=== PATIENT | female | born 1970 | race African-American/Black ===

== ENCOUNTER 2019-05-12 16:27 | Emergency (ER) | payer OTHER ==
[~2019-05-12] VITALS: Ht 170.2 cm; Wt 74.8 kg
[2019-05-12 16:35] VITALS: BP 129/86
--- NOTE | 2019-05-12 16:35 | NUR ---
ED Nurse Note: pt walked in to ED due to swelling on multiple area on both arms for 1 day. per pt, bite by insect at work over month, but this time, she noticed swelling. c/o itchness, no pain. AAO x4. respirations even and non-labored noted. will wait for the further order.
--- NOTE | 2019-05-12 17:19 | Emergency Room Report ---
History of Present Illness General Chief Complaint: Skin Rash/Abscess Source: Patient Present Illness HPI 49 year old female presents to the ED c/o multiple swollen, red areas on the bilateral UE's that are itchy. Pt. reports acute onset yesterday while at work. Pt. denies pain at rest, she reports some mild sensitivity with direct palpation. Pt. denies fevers, chills or swollen tender lymph nodes. Denies lesions/rashes elsewhere on the body. Denies new medications or body washes or creams. Denies swelling of the lips, tongue , throat or airway. Denies wheezing , or shortness of breath. Denies recent travel, or recent illness. She denies blisters, oral lesions, or sloughing of the skin. Pt. reports another coworker has similar symptoms. No other aggravating or relieving factors at this time. She has not taken or applied any medications for her symptoms. Allergies: Coded Allergies: No Known Allergies (Unverified , 05/12/19) Patient History Past Medical History: see triage record Past Surgical History: none Pertinent Family History: none Now: No Reviewed Nursing Documentation: PMH: Agreed; PSxH: Agreed Nursing Documentation-PMH Past Medical History: No Stated History Review of Systems All Other Systems: negative except mentioned in HPI Physical Exam Vital Signs Date Time Temp Pulse Resp B/P (MAP) Pulse Ox O2 Delivery O2 Flow Rate FiO2 05/12/19 16:31 98.1 75 17 129/86 (100) 99 Room Air Medical Decision Making PA Attestation Dr. Ravi is my supervising Physician whom patient management has been discussed with. Diagnostic Impression: Primary Impression: Insect bites Qualified Codes: S40.869A - Insect bite (nonvenomous) of unspecified upper arm , initial encounter; W57.XXXA - Bitten or stung by nonvenomous insect and other nonvenomous arthropods, initial encounter Additional Impression: Allergic reaction to insect bite ER Course 49 year old female presents to the ED c/o multiple swollen, red areas on the bilateral UE's that are itchy. Pt. reports acute onset yesterday while at work. Pt. denies pain at rest, she reports some mild sensitivity with direct palpation. Pt. denies fevers, chills or swollen tender lymph nodes. Denies lesions/rashes elsewhere on the body. Denies new medications or body washes or creams. Denies swelling of the lips, tongue , throat or airway. Denies wheezing , or shortness of breath. Denies recent travel, or recent illness. She denies blisters, oral lesions, or sloughing of the skin. Pt. reports another coworker has similar symptoms. No other aggravating or relieving factors at this time. She has not taken or applied any medications for her symptoms. Ddx considered but are not limited to cellulitis, scabies, insect bites, tic bites, spider bites, contact dermatitis, Drug reaction, allergic reaction, fungal infection, lice. Vital signs: are WNL, pt. is afebrile H&PE are most consistent with insect bites of multiple sites on the bilateral UE 's with localized allergic reaction no evidence of acute or impending airway compromise or anaphylaxis. No evidence of secondary infection at this time. ORDERS: none required at this time, the diagnosis is clinical ED INTERVENTIONS: None required at this time. Patient was offered prescription for Benadryl tablets and hydrocortisone cream. This patient declined and states that she will purchase OTC. DISCHARGE: At this time pt. is stable for d/c to home. Will provide printed patient care instructions, and any necessary prescriptions. Care plan and follow up instructions have been discussed with the patient prior to discharge. Last Vital Signs Date Time Temp Pulse Resp B/P (MAP) Pulse Ox O2 Delivery O2 Flow Rate FiO2 05/12/19 16:35 98.1 75 17 129/86 99 Room Air Disposition: HOME, SELF-CARE Condition: Stable Scripts No Active Prescriptions or Reported Meds Referrals: [facility] (PCP) Patient Instructions: Insect Bite, [id number], Medical Screening Exam Additional Instructions: Take recommended OTC medications as directed. Do not drink alcohol, drive, or operate heavy machinery while taking Benadryl as this may cause drowsiness. Follow up with a Primary Care Provider in 3-5 days, even if your symptoms have resolved. To reduce risk of re-occurrence of your symptoms: Avoid additional contact with initial exposure Return sooner to ED if new symptoms occur, or current symptoms become worse. - Please note that this Emergency Department Report was dictated using [employer] address systems mechanic technology software, occasionally this can lead to erroneous entry secondary to interpretation by the dictation equipment. Bettye Aguilar May 12, 2019 17:19
[2019-05-12 17:31] VITALS: BP 131/78
--- NOTE | 2019-05-12 17:31 | NUR ---
ER DISCHARGE NOTE: Patient is cleared to be discharged per ERMD, pt is aox4, on room air, with stable vital signs. pt was given dc instructions, pt was able to verbalize understanding, pt id band removed without complications. pt is able to ambulate with steady gait. pt took all belongings.
== END 2019-05-12 17:32 | disposition home or self-care (01) ==
LOC: EMR 16:56
DX: T63.481A Toxic effect of venom of other arthropod, accidental (unintentional), initial encounter (principal); L25.8 Unspecified contact dermatitis due to other agents; W57.XXXA Bitten or stung by nonvenomous insect and other nonvenomous arthropods, initial encounter; Y92.242 Post office as the place of occurrence of the external cause; Y99.0 Civilian activity done for income or pay
CPT/HCPCS: 99281

== ENCOUNTER 2020-04-13 11:14 | Emergency (ER) | payer OTHER ==
[~2020-04-13] VITALS: Ht 172.7 cm; Wt 83.9 kg
--- NOTE | 2020-04-13 11:24 | NUR ---
ED Nurse Note: PT walked in to ed for C/O pain 4/10 to nasal and facial area after being hit by a dutchdoor at work. (8:57AM). denies K.O. denies any nose bleed.
[2020-04-13 11:25] VITALS: BP 117/80
--- NOTE | 2020-04-13 11:40 | Emergency Room Report ---
History of Present Illness General Chief Complaint: Multiple Trauma/Fall Source: Patient Present Illness HPI The patient was working and near [place] door that swung open and hit her in the right side of the nose. It shocked her and caused her to drop to her knees. She denies loss of consciousness. There was minimal bleeding that was stopped with direct pressure. The bleeding was from the skin and not from the nose. There is swelling there. She also believes that her eye might show signs of early ecchymoses. She denies headache at this time. She rates the pain 4/10. She states her last tetanus shot was 2 years ago. She denies nausea or vomiting. 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 Period: NA Reviewed Nursing Documentation: PMH: Agreed; PSxH: Agreed Nursing Documentation-PMH Past Medical History: No Stated History Hx Cardiac Problems: No Hx Hypertension: No Hx Pacemaker: No Hx Asthma: No Hx COPD: No Hx Diabetes: No Hx Cancer: No Hx Gastrointestinal Problems: No Hx Dialysis: No History Of Psychiatric Problem: No Hx Neurological Problems: No Hx Cerebrovascular Accident: No Hx Seizures: No Review of Systems Constitutional: Denies: fever Eye: Reports: see HPI ENT: Reports: see HPI Musculoskeletal: Reports: see HPI Skin: Reports: see HPI Neurological: Reports: see HPI Physical Exam Vital Signs Date Time Temp Pulse Resp B/P (MAP) Pulse Ox O2 Delivery O2 Flow Rate FiO2 04/13/20 11:19 98.1 75 17 117/80 (92) 99 Room Air Sp02 EP Interpretation: reviewed, normal General Appearance: well appearing, no apparent distress, GCS 15 Head: normocephalic, other Eyes: bilateral eye normal inspection, bilateral eye PERRL, bilateral eye EOMI ENT: normal pharynx, moist mucus membranes, other - Nasal bones stable, no active bleeding Neck: full range of motion, supple Respiratory: normal inspection Cardiovascular #1: regular rate, rhythm Cardiovascular #2: 2+ radial (R) Gastrointestinal: normal inspection Musculoskeletal: gait/station normal Neurologic: alert, petroleum analyst III-XII nml as tested, DTRs symmetric, oriented x3, sensory intact, cerebellar normal, speech normal Psychiatric: mood/affect normal Skin: normal color, warm/dry, laceration - 1 to 2 mm right side of nose with no active bleeding, slight hematoma Medical Decision Making Diagnostic Impression: Primary Impression: Nasal contusion Qualified Codes: S00.33XA - Contusion of nose, initial encounter Additional Impressions: Superficial laceration Head injury Qualified Codes: S09.90XA - Unspecified injury of head, initial encounter ER Course Patient presents after being struck in the nose from a [place] door. Differential includes superficial laceration, nasal contusion, concussion amongst others. Based on physical exam and x-rays are not indicated at this time. Bacitracin will be applied. The patient was offered analgesia but declined. Discussed findings with patient. Discussed local wound care and sleeping with her head elevated. Patient stable for outpatient observation and treatment. Last Vital Signs Date Time Temp Pulse Resp B/P (MAP) Pulse Ox O2 Delivery O2 Flow Rate FiO2 04/13/20 12:05 98.1 17 117/80 99 Room Air 04/13/20 11:25 75 Status: improved Disposition: HOME, SELF-CARE Condition: Improved Scripts Bacitracin (Bacitracin) 28.4 Gm Oint...g. 1 APPLIC TOPIC BID, #10 GM Prov: Alton Modi MD 04/13/20 Alton Modi MD Apr 13, 2020 11:40
[2020-04-13] MEDS ORDERED: BACITRACIN15 GM TOPIC (11:44)
[2020-04-13] MEDS ORDERED: Bacitracin Oint UD TOPIC ONE (11:45)
[2020-04-13 12:05] VITALS: BP 117/80
--- NOTE | 2020-04-13 12:05 | NUR ---
ED Nurse Note: Pt cleared by health care Provider for discharge. DC instructions/prescription was given and explained to pt and verbalized understanding of teachings. All medical deviecs such as ID band removed. Pt is AAO x4, ambulatory and left with all personal belongings.
== END 2020-04-13 12:05 | disposition home or self-care (01) ==
LOC: EMR 11:44
DX: S01.21XA Laceration without foreign body of nose, initial encounter (principal); S00.33XA Contusion of nose, initial encounter; S09.90XA Unspecified injury of head, initial encounter; W22.8XXA Striking against or struck by other objects, initial encounter; Y92.9 Unspecified place or not applicable
CPT/HCPCS: 99282